=== PATIENT | male | born 1985 | race African-American/Black ===

== ENCOUNTER → 2019-11-29 | Outpatient (CLI) | payer SELFPAY | LOC: COL.LAB 09:04 | DX: M47.812 Spondylosis without myelopathy or radiculopathy, cervical region (principal); M53.2X2 Spinal instabilities, cervical region; G95.29 Other cord compression; Z98.1 Arthrodesis status ==

== ENCOUNTER 2020-01-01 13:00 | Outpatient (RCR) | payer SELFPAY | END 2020-01-20 11:15 | disposition home or self-care (01) | LOC: WSC 13:00 | DX: M54.2 Cervicalgia (principal); M79.605 Pain in left leg; M54.5 Low back pain; V89.2XXS Person injured in unspecified motor-vehicle accident, traffic, sequela ==

== ENCOUNTER → 2020-01-23 | Outpatient (CLI) | payer SELFPAY | LOC: COL.RAD 13:26 | DX: M50.322 Other cervical disc degeneration at C5-C6 level (principal); M48.02 Spinal stenosis, cervical region; M40.50 Lordosis, unspecified, site unspecified; M53.2X2 Spinal instabilities, cervical region; G95.29 Other cord compression; Z98.1 Arthrodesis status ==

== ENCOUNTER 2020-02-05 10:51 | Emergency (ER) | payer SELFPAY ==
[~2020-02-05] VITALS: Ht 170.2 cm; Wt 84.1 kg
[2020-02-05 11:00] VITALS: TEMP 97.9
[2020-02-05] MEDS ORDERED: OXYCONTIN 10MG10 MG PO (11:47)
[2020-02-05 12:57] LABS: COLLECTION METHOD CLEAN CATCH
[2020-02-05 13:11] LABS: BASO % 0.2 % (0.0-2.0); EOS % 0.2 % (0-4.0); GRAN # 8.6 (1.4-6.5); GRAN % 78.3 % (42.2-75.2); HEMATOCRIT 46.8 % (42.0-52.0); HEMOGLOBIN 16.6 g/dl (13.5-18.0); LYMPH # 1.6 (1.2-3.4); LYMPH % 14.9 % (20.0-51.0); MEAN CELL VOLUME 90 fl (80.0-100.0); MEAN CORPUSCULAR HEMOGLOBIN 32 pg (27.0-31.0); MEAN CORPUSCULAR HGB CONC 36 g/dl (33.0-37.0); MEAN PLATELET VOLUME 8.8 fl (7.4-10.4); MONO # 0.7 (0.1-0.6); MONO % 6.1 % (1.7-9.3); PLATELET COUNT 334 K/mm3 (130-400); RED BLOOD COUNT 5.19 M/mm3 (4.20-5.60); REDCELL DISTRIBUTION WIDTH-CV 12.9 % (11.5-14.5)
[2020-02-05 13:12] LABS: ALBUMIN 4.3 gm/dL (3.5-5.0); CALCIUM 9.3 mg/dL (8.4-10.2); CREATININE, serum 0.95 (0.66-1.25); POTASSIUM 3.5 mmol/L (3.4-5.0); TOTAL PROTEIN 7.9 gm/dL (6.4-8.2)
[2020-02-05 13:19] LABS: MUCOUS Present /lpf; PH 6 (5-8); SQUAMOUS EPITHELIAL 0-2 /hpf; URINE APPEARANCE Hazy; URINE BACTERIA None Seen /hpf; URINE BILIRUBIN Negative (NEGATIVE); URINE BLOOD 1+ (NEGATIVE); URINE COLOR Amber; URINE GLUCOSE Negative (NEGATIVE); URINE KETONE Negative (NEGATIVE); URINE LEUKOCYTE ESTERASE Trace (NEGATIVE); URINE NITRATE Negative (NEGATIVE); URINE PROTEIN(semi-quant) 2+ (NEGATIVE)
[2020-02-05 14:03] VITALS: BP 127/79
[2020-02-05] MEDS ORDERED: ZOFRAN 4MG T4 MG/TAB PO (14:13)
[2020-02-05] MEDS ORDERED: ZITHROMAX 250M250 MG PO (14:13)
[2020-02-05 14:39] VITALS: PULSE 81
== END 2020-02-05 14:43 | disposition home or self-care (01) ==
LOC: COL.ER 10:51
PROVIDERS: Nurse Practitioner Primary Care
DX: N34.2 Other urethritis (principal); R51.9 Headache, unspecified; G89.29 Other chronic pain; Z20.828 Contact with and (suspected) exposure to other viral communicable diseases
CPT/HCPCS: J0696; J1885; J2405; J7030

== ENCOUNTER 2020-07-04 13:18 | Emergency (ER) | payer SELFPAY ==
[~2020-07-04] VITALS: Ht 167.6 cm; Wt 84.1 kg
[~2020-07-04 13:18] MED LIST: OXYCONTIN 10MG10 MG PO; ZITHROMAX 250M250 MG PO; ZOFRAN 4MG T4 MG/TAB PO
[2020-07-04] MEDS ORDERED: CEPHALEXIN500 M1 PO (14:47)
[2020-07-04] MEDS ORDERED: DOXYCYCLINE 10100 MG PO (14:47)
[2020-07-04 15:05] VITALS: BP 137/78; PULSE 72; TEMP 98.4
== END 2020-07-04 15:01 | disposition home or self-care (01) ==
LOC: COL.ER 13:18
DX: N49.2 Inflammatory disorders of scrotum (principal); Z88.0 Allergy status to penicillin
CPT/HCPCS: J0696

== ENCOUNTER 2021-07-28 11:53 | Emergency (ER) | payer SELFPAY ==
[~2021-07-28] VITALS: Ht 170.2 cm; Wt 86.4 kg
[~2021-07-28 11:53] MED LIST changes: +CEPHALEXIN500 M1 PO; +DOXYCYCLINE 10100 MG PO
[2021-07-28 13:08] LABS: BASO % 0.3 % (0.0-2.0); EOS % 0.3 % (0.0-4.0); GRAN % 81.4 % (42.2-75.2); HEMATOCRIT 47.1 % (42.0-52.0); HEMOGLOBIN 16.9 g/dl (13.5-18.0); LYMPH # 0.9 K/mm3 (1.2-3.4); LYMPH % 11.7 % (20.0-51.0); MEAN CELL VOLUME 91 fl (80.0-100.0); MEAN CORPUSCULAR HEMOGLOBIN 33 pg (27-31); MEAN CORPUSCULAR HGB CONC 36 g/dl (33.0-37.0); MEAN PLATELET VOLUME 8.8 fl (7.4-10.4); MONO # 0.4 K/mm3 (0.1-0.6); MONO % 5.8 % (1.7-9.3); PLATELET COUNT 273 K/mm3 (130-400); REDCELL DISTRIBUTION WIDTH-CV 12.2 % (11.5-14.5)
[2021-07-28 13:28] LABS: ALBUMIN 3.7 gm/dL (3.5-5.0); BILIRUBIN,TOTAL 0.8 mg/dL (0.2-1.2); CALCIUM 8.5 mg/dL (8.4-10.2); CREATININE, serum 0.98 mg/dL (0.72-1.25); POTASSIUM 3.6 mmol/L (3.5-4.5); TOTAL PROTEIN 6.8 gm/dL (6.2-8.1)
[2021-07-28 13:51] LABS: COLLECTION METHOD CLEAN CATCH
[2021-07-28 13:57] LABS: MUCOUS Present (NOT PRESENT); PH 6 (5-8); SQUAMOUS EPITHELIAL 0-2 /hpf (0-10); URINE APPEARANCE Clear (CLEAR/HAZY); URINE BACTERIA None Seen /hpf (NONE SEEN); URINE BILIRUBIN Negative (NEGATIVE); URINE BLOOD Negative (NEGATIVE); URINE COLOR Yellow (YELLOW); URINE GLUCOSE Negative (NEGATIVE); URINE KETONE Negative (NEGATIVE); URINE LEUKOCYTE ESTERASE Negative (NEGATIVE); URINE NITRATE Negative (NEGATIVE); URINE PROTEIN(semi-quant) Negative (NEGATIVE); URINE RBC 0-2 /hpf (0-2); URINE UROBILINOGEN Negative (NEGATIVE)
[2021-07-28] MEDS ORDERED: ZOFRAN ODT4 MG PO (17:09)
[2021-07-28] MEDS ORDERED: DOXYCYCLINE 10100 MG PO (17:09)
[2021-07-28 17:33] VITALS: BP 127/92; PULSE 67; TEMP 98.9
== END 2021-07-28 17:33 | disposition home or self-care (01) ==
LOC: COL.ER 11:53
PROVIDERS: Nurse Practitioner Family
DX: K29.70 Gastritis, unspecified, without bleeding (principal); R19.7 Diarrhea, unspecified; Z20.2 Contact with and (suspected) exposure to infections with a predominantly sexual mode of transmission; Z88.0 Allergy status to penicillin
CPT/HCPCS: J0696; J2405; J7030

== ENCOUNTER 2021-09-30 15:27 | Emergency (ER) | payer SELFPAY ==
[~2021-09-30] VITALS: Ht 170.2 cm; Wt 84.1 kg
[~2021-09-30 15:27] MED LIST changes: +ZOFRAN ODT4 MG PO
[2021-09-30 16:19] VITALS: TEMP 98
[2021-09-30 17:28] LABS: HEMATOCRIT 47.4 % (42.0-52.0); HEMOGLOBIN 17.4 g/dl (13.5-18.0); MEAN CELL VOLUME 92 fl (80.0-100.0); MEAN CORPUSCULAR HEMOGLOBIN 34 pg (27-31); MEAN CORPUSCULAR HGB CONC 37 g/dl (33.0-37.0); MEAN PLATELET VOLUME 9.1 fl (7.4-10.4); PLATELET COUNT 345 K/mm3 (130-400); RED BLOOD COUNT 5.18 M/mm3 (4.20-5.60); REDCELL DISTRIBUTION WIDTH-CV 12.3 % (11.5-14.5)
[2021-09-30 17:53] LABS: ALBUMIN 4.3 gm/dL (3.5-5.0); BILIRUBIN,TOTAL 1.3 mg/dL (0.2-1.2); CALCIUM 9.9 mg/dL (8.4-10.2); CREATININE, serum 0.94 mg/dL (0.72-1.25); POTASSIUM 4.1 mmol/L (3.5-4.5); TOTAL PROTEIN 8.4 gm/dL (6.2-8.1)
[2021-09-30 18:30] VITALS: BP 118/66; PULSE 84
[2021-09-30 18:46] LABS: BAND 2 % (0-10); LYMPHOCYTE 4 % (20.0-51.0); NEUTROPHILS 88 % (42.0-75.2); PLATELET ESTIMATE NORMAL (NORMAL)
== END 2021-09-30 18:45 | disposition home or self-care (01) ==
LOC: COL.ER 15:27
PROVIDERS: Physician Assistant
DX: T67.5XXA Heat exhaustion, unspecified, initial encounter (principal); E86.0 Dehydration; R25.2 Cramp and spasm; D72.829 Elevated white blood cell count, unspecified; Z20.822 Contact with and (suspected) exposure to COVID-19; Z28.311 Partially vaccinated for COVID-19
CPT/HCPCS: J1885; J2405; J7030

== ENCOUNTER 2021-10-26 11:26 | Emergency (ER) | payer SELFPAY ==
[~2021-10-26] VITALS: Ht 167.6 cm; Wt 81.8 kg
[2021-10-26 11:35] VITALS: BP 123/77; TEMP 98.2
[2021-10-26 14:02] VITALS: PULSE 72
== END 2021-10-26 14:02 | disposition home or self-care (01) ==
LOC: COL.ER 11:26
DX: Z20.2 Contact with and (suspected) exposure to infections with a predominantly sexual mode of transmission (principal); Z28.311 Partially vaccinated for COVID-19